=== PATIENT | male | born 2000 | race Native Hawaiian/Other Pacific Islander ===

== ENCOUNTER 2022-04-01 15:41 | Outpatient (CLI) | payer OTHER | END 2022-04-01 19:00 | disposition home or self-care (01) | LOC: RAD 15:41 | PROVIDERS: ATTEND Registered Nurse | DX: R22.0 Localized swelling, mass and lump, head (principal) ==

== ENCOUNTER 2022-04-02 15:09 | Emergency (ER) | payer OTHER ==
[~2022-04-02] VITALS: Ht 175.3 cm; Wt 76.7 kg
[2022-04-02 15:13] VITALS: BP 156/90; TEMP 98.5
== END 2022-04-02 16:26 | disposition home or self-care (01) ==
LOC: ED 15:09
DX: K05.219 Aggressive periodontitis, localized, unspecified severity (principal)
CPT/HCPCS: 96372; 99282; J0696

== ENCOUNTER 2022-04-03 01:49 | Emergency (ER) | payer OTHER ==
[~2022-04-03] VITALS: Ht 175.3 cm; Wt 76.7 kg
[2022-04-03 03:00] LABS: POTASSIUM 2.9 mmol/L (3.6-5.2)
[2022-04-03 03:08] LABS: PLATELET COUNT 290 K/uL (142-355)
[2022-04-03 04:40] VITALS: TEMP 99.2
[2022-04-03 07:55] VITALS: BP 118/72
== END 2022-04-03 07:55 | disposition home or self-care (01) ==
LOC: ED 01:49
PROVIDERS: Emergency Medicine
DX: K05.219 Aggressive periodontitis, localized, unspecified severity (principal)
CPT/HCPCS: 36415; 80048; 83605; 85027; 96365; 96366; 96372; 99284; J1885; J1956; Q9963